=== PATIENT | male | born 1945 | race Hispanic/Latino ===

== ENCOUNTER 2020-12-06 13:59 | Inpatient (IN) | payer OTHER, MEDICARE ==
[~2020-12-06] VITALS: Ht 162.6 cm; Wt 44.5 kg
[~2020-12-06 13:59] MED LIST: Aspirin PO; DILT120C89 PO
[2020-12-06] MEDS: ASPIRIN 81 MG EC TAB PO SCH (14:19)
[2020-12-06] MEDS ORDERED: FUROSEMIDE 20 MG TABLET PO SCH (14:19)
[2020-12-06] MEDS ORDERED: GLUCAGON 1MG KIT 1 MG ML IM PRN (14:30)
[2020-12-06] MEDS ORDERED: DEXTROSE 50%-WATER 50 ML DISP.SYRIN IV PRN (14:30)
[2020-12-06] MEDS ORDERED: 0.9%NACL 10ML VIAL IVP PRN (14:30)
[2020-12-06] MEDS ORDERED: POTASSIUM CHLORIDE 10% ELIXIR 20 MEQ/15 ML UDCUP PO PRN ×2 (14:30→14:45)
[2020-12-06] MEDS ORDERED: POTASSIUM CHLORIDE 20MEQ/100ML 100 ML IV PRN ×2 (14:30→14:45)
[2020-12-06] MEDS ORDERED: KCL 20 MEQ ERTAB PO PRN ×2 (14:30→14:45)
[2020-12-06] MEDS ORDERED: LIDOCAINE HCL-MPF 1% 2ML VIAL IJ PRN (14:30)
[2020-12-06] MEDS ORDERED: MORPHINE 2 MG SYG IV PRN (14:45)
[2020-12-06] MEDS ORDERED: ACETAMINOPHEN WITH CODEINE 1 TAB TAB PO PRN (14:45)
[2020-12-06] MEDS ORDERED: DIPHENHYDRAMINE HCL 25 MG CAPSULE PO PRN (14:45)
[2020-12-06] MEDS ORDERED: HYDRALAZINE 20MG/ML VIAL IV PRN (14:45)
[2020-12-06] MEDS ORDERED: NITROGLYCERIN 0.4 MG SL TAB SL PRN (14:45)
[2020-12-06] MEDS ORDERED: DiphenhydrAMINE HCL 50 MG/ML VIAL IV PRN (14:45)
[2020-12-06] MEDS ORDERED: MAGNESIUM 2GM PREMIX 50ML 50 ML IV PRN (14:45)
[2020-12-06] MEDS ORDERED: LACTULOSE 20 GM/30 ML UDCUP PO PRN (14:45)
[2020-12-06] MEDS ORDERED: MAG/ALUM/SIMETH 30 ML UDCUP PO PRN (14:45)
[2020-12-06] MEDS ORDERED: ZOLPIDEM TARTRATE 5 MG TAB PO PRN (14:45)
[2020-12-06] MEDS ORDERED: ONDANSETRON 4MG INJ IV PRN (14:45)
[2020-12-06] MEDS ORDERED: LIDOCAINE HCL-MPF 1% 2ML VIAL IV PRN (14:45)
[2020-12-06] MEDS ORDERED: GUAIFENESIN-DM 200/20 MG 10 ML PO PRN (14:45)
[2020-12-06] MEDS ORDERED: ACETAMINOPHEN 325 MG TAB PO PRN ×2 (14:45)
[2020-12-06 15:28] LABS: BASOPHILS % (AUTO) 0.7 % (0.0-5.0); LYMPHOCYTES % (AUTO) 22.4 % (21.0-51.0); MEAN CORPUSCULAR HEMOGLOBIN 33.4 pg (27.0-33.0); MEAN CORPUSCULAR HGB CONC 34.3 g/dL (32.0-36.0); MEAN CORPUSCULAR VOLUME 97.4 fL (79-99); MONOCYTES % (AUTO) 9.7 % (3.0-13.0); NEUTROPHILS % (AUTO) 53.9 % (40.0-77.0); PLATELET COUNT (AUTO) 152 K/uL (130-400); RED BLOOD CELL COUNT(AUTO) 5.03 MIL/uL (4.50-6.20); RED CELL DISTRIBUTION WIDTH 15.1 % (11.0-15.5); WHITE BLOOD COUNT (AUTO) 7.6 K/uL (4.8-10.8)
[2020-12-06 15:32] LABS: APPEARANCE,URINE Clear (CLEAR); BILIRUBIN,URINE Negative (NEGATIVE); COLOR,URINE Yellow (YELLOW); GLUCOSE, URINE (UA) Negative (NEGATIVE); KETONES,URINE Negative (NEGATIVE); LEUKOCYTE ESTERASE ,URINE Trace (NEGATIVE); NITRATE,URINE Negative (NEGATIVE); OCCULT BLOOD,URINE Negative (NEGATIVE); PROTEIN,URINE Negative (NEGATIVE)
[2020-12-06 15:36] LABS: CREATININE 1.1 mg/dL (0.5-1.5); POTASSIUM 3.9 mmol/L (3.5-5.1)
[2020-12-06 15:44] LABS: INR 1.21 (0.85-1.15)
[2020-12-06] MEDS ORDERED: FUROSEMIDE 20 MG TABLET ONE (15:44)
[2020-12-06] MEDS ORDERED: ASPIRIN 81 MG EC TAB ONE (15:45)
[2020-12-06] MEDS ORDERED: CARVEDILOL 3.125 MG TABLET PO ONE (15:45)
[2020-12-06 15:46] LABS: PARTIAL THROMBOPLASTIN TIME 27.6 SEC (26.3-35.5)
[2020-12-06 15:49] LABS: ALBUMIN 4.1 g/dL (3.5-5.0); BILIRUBIN,TOTAL 1.8 mg/dL (0.2-1.0); THYROID STIMULATING HORMONE 3.97 uIU/mL (0.36-3.74); TOTAL PROTEIN, SERUM 7.8 g/dL (6.0-8.3)
[2020-12-06 15:55] LABS: B-TYPE NATRIURETIC PEPTIDE 1320 pg/mL (0-100)
[2020-12-06] MEDS: DIGOXIN 125 MCG TABLET PO SCH (16:00)
[2020-12-06] MEDS ORDERED: DIGOXIN 125 MCG TABLET PO SCH (16:01)
[2020-12-06 16:06] LABS: CREATINE KINASE, TOTAL 127 U/L (21-232); MYOGLOBIN 27 ng/mL (10-92); TROPONIN I < 0.04 ng/mL (0.00-0.06)
[2020-12-06] MEDS ORDERED: IOHEXOL-350 50ML VIAL IV ONE (16:23)
[2020-12-06] MEDS ORDERED: INSULIN R PO SS1 SQ SCH (16:30)
[2020-12-06 16:41] LABS: BACTERIA,URINE Rare /HPF (None Seen); RBC,URINE 0-1 /HPF (0-1); SQUAMOUS EPITHELIAL CELL,UR Rare /HPF (0-2); WBC,URINE 0-1 /HPF (0-1)
[2020-12-06] MEDS ORDERED: SOLU-MEDROL 125MG VIAL IM SCH (18:45)
[2020-12-06 19:05] LABS: ABG BASE EXCESS -4.3 mmol/L (-2.0-3.0); ABG HCO3 18.9 mmol/L (21.0-28.0); ABG OXYGEN SATURATION 93.4 % (95.0-99.0); ABG PCO2 30 mmHg (35-48)
[2020-12-06] MEDS ORDERED: FUROSEMIDE 20MG VIAL IV SCH (20:00)
[2020-12-06] MEDS ORDERED: SOLU-MEDROL 125MG VIAL ONE (20:54)
[2020-12-06] MEDS ORDERED: FUROSEMIDE 20MG VIAL ONE (20:55)
[2020-12-06] MEDS ORDERED: FAMOTIDINE 20MG TAB ONE (20:55)
[2020-12-06] MEDS: FAMOTIDINE 20MG TAB PO SCH (21:00)
[2020-12-06] MEDS: FUROSEMIDE 40MG VIAL IVP SCH (21:00)
[2020-12-06] MEDS: HEPARIN 5,000 UNIT VIAL SQ SCH (21:00)
[2020-12-06] MEDS: CARVEDILOL 3.125 MG TABLET PO SCH (21:00)
[2020-12-06] MEDS: INSULIN HUMULIN R 100 UNIT/ML 3ML SQ SCH (21:00)
[2020-12-06 21:50] VITALS: BP 133/56
[2020-12-06] MEDS: IPRATROPIUM 0.5 MG/2.5 ML INH IH SCH (22:16)
[2020-12-07] VITALS (14 sets, daily range): BP systolic 94–124; BP diastolic 58–92
[2020-12-07] MEDS: SOLU-MEDROL 125MG VIAL IVP SCH ×4 (01:16→19:31)
[2020-12-07 04:52] LABS: BASOPHILS % (AUTO) 0.2 % (0.0-5.0); EOSINOPHILS % (AUTO) 0.2 % (0.0-8.0); HEMATOCRIT 48.3 % (42-54); LYMPHOCYTES % (AUTO) 13.9 % (21.0-51.0); MEAN CORPUSCULAR HEMOGLOBIN 32.6 pg (27.0-33.0); MONOCYTES % (AUTO) 1.5 % (3.0-13.0); NEUTROPHILS % (AUTO) 83.8 % (40.0-77.0); PLATELET COUNT (AUTO) 138 K/uL (130-400); RED BLOOD CELL COUNT(AUTO) 5.03 MIL/uL (4.50-6.20); RED CELL DISTRIBUTION WIDTH 14.5 % (11.0-15.5); WHITE BLOOD COUNT (AUTO) 4.6 K/uL (4.8-10.8)
[2020-12-07 05:11] LABS: ALBUMIN 3.5 g/dL (3.5-5.0); BILIRUBIN,TOTAL 2.2 mg/dL (0.2-1.0); MAGNESIUM 4.3 mg/dL (1.80-2.40); POTASSIUM 4.3 mmol/L (3.5-5.1); TOTAL PROTEIN, SERUM 6.7 g/dL (6.0-8.3)
[2020-12-07 05:19] LABS: B-TYPE NATRIURETIC PEPTIDE 1600 pg/mL (0-100)
[2020-12-07 05:26] LABS: INR 1.21 (0.85-1.15)
[2020-12-07 05:27] LABS: PARTIAL THROMBOPLASTIN TIME 28.7 SEC (26.3-35.5)
[2020-12-07] MEDS: IPRATROPIUM 0.5 MG/2.5 ML INH IH SCH ×3 (06:00→18:00)
[2020-12-07] MEDS: BUDESONIDE 0.5 MG/2 ML INH IH SCH ×2 (06:00→18:00)
[2020-12-07] MEDS: INSULIN HUMULIN R 100 UNIT/ML 3ML SQ SCH ×4 (06:22→20:48)
[2020-12-07] MEDS: ASPIRIN 81 MG EC TAB PO SCH (08:25)
[2020-12-07] MEDS: FAMOTIDINE 20MG TAB PO SCH ×2 (08:25→20:18)
[2020-12-07] MEDS: HEPARIN 5,000 UNIT VIAL SQ SCH ×2 (08:26→20:17)
[2020-12-07] MEDS: FUROSEMIDE 40MG VIAL IVP SCH ×2 (08:28→20:18)
[2020-12-07] MEDS: CARVEDILOL 3.125 MG TABLET PO SCH ×2 (08:28→20:23)
[2020-12-07 16:01] LABS: APPEARANCE BODY FLUID BLOODY (CLEAR); COLOR,BODY FLUID RED (LT YELLOW); SPECIMENTYPE,BODY FLUID THORACENTESIS; TOTAL VOLUME,BODY FLUID 750 mL
[2020-12-07 16:02] LABS: BODY FLUID RBC 11500 /cu. mm.
[2020-12-07 16:18] LABS: BODY FLUID WBC 55 /cu. mm.
[2020-12-07] MEDS: DIGOXIN 125 MCG TABLET PO SCH ×2 (17:28→18:30)
[2020-12-07 21:14] LABS: BF LYMPHOCYTE 78 %; BF MESOTHELIAL 3 %
[2020-12-08 00:08] VITALS: BP 92/59
[2020-12-08] MEDS: SOLU-MEDROL 125MG VIAL IVP SCH ×4 (01:21→17:57)
[2020-12-08 04:00] VITALS: BP 86/59
[2020-12-08 05:18] LABS: HEMATOCRIT 39.3 % (42-54); MEAN CORPUSCULAR HEMOGLOBIN 33.7 pg (27.0-33.0); MEAN CORPUSCULAR HGB CONC 35.4 g/dL (32.0-36.0); MEAN CORPUSCULAR VOLUME 95.2 fL (79-99); RED BLOOD CELL COUNT(AUTO) 4.13 MIL/uL (4.50-6.20); RED CELL DISTRIBUTION WIDTH 14.3 % (11.0-15.5); WHITE BLOOD COUNT (AUTO) 15.9 K/uL (4.8-10.8)
[2020-12-08 05:26] LABS: CREATININE 1.6 mg/dL (0.5-1.5); MAGNESIUM 1.9 mg/dL (1.80-2.40); POTASSIUM 3.4 mmol/L (3.5-5.1)
[2020-12-08] MEDS: BUDESONIDE 0.5 MG/2 ML INH IH SCH ×2 (06:00→15:57)
[2020-12-08] MEDS: IPRATROPIUM 0.5 MG/2.5 ML INH IH SCH ×4 (06:00→15:56)
[2020-12-08] MEDS: INSULIN HUMULIN R 100 UNIT/ML 3ML SQ SCH ×4 (07:20→21:43)
[2020-12-08] MEDS ORDERED: KCL 20 MEQ ERTAB PO SCH (10:15)
[2020-12-08] MEDS: ASPIRIN 81 MG EC TAB PO SCH (10:23)
[2020-12-08] MEDS: FAMOTIDINE 20MG TAB PO SCH ×2 (10:23→21:39)
[2020-12-08] MEDS: CARVEDILOL 3.125 MG TABLET PO SCH ×2 (10:43→21:39)
[2020-12-08] MEDS: HEPARIN 5,000 UNIT VIAL SQ SCH ×2 (10:48→21:43)
[2020-12-08 12:00] VITALS: BP 98/60
[2020-12-08 16:11] VITALS: BP 101/65
[2020-12-08 19:00] VITALS: BP 108/67
[2020-12-08] MEDS ORDERED: DEXTROSE 10%-WATER 1,000 ML IV ONE (22:10)
[2020-12-09] VITALS: BP 93/56
[2020-12-09] MEDS: SOLU-MEDROL 125MG VIAL IVP SCH ×4 (00:25→18:42)
[2020-12-09] MEDS: IPRATROPIUM 0.5 MG/2.5 ML INH IH SCH ×6 (00:35→23:45)
[2020-12-09 04:00] VITALS: BP 105/70
[2020-12-09 04:29] LABS: BASOPHILS % (AUTO) 0.1 % (0.0-5.0); EOSINOPHILS % (AUTO) 0.1 % (0.0-8.0); LYMPHOCYTES % (AUTO) 2.5 % (21.0-51.0); MEAN CORPUSCULAR HEMOGLOBIN 33.7 pg (27.0-33.0); MEAN CORPUSCULAR HGB CONC 34.9 g/dL (32.0-36.0); MEAN CORPUSCULAR VOLUME 96.7 fL (79-99); MONOCYTES % (AUTO) 4.2 % (3.0-13.0); NEUTROPHILS % (AUTO) 91.8 % (40.0-77.0); PLATELET COUNT (AUTO) 143 K/uL (130-400); RED BLOOD CELL COUNT(AUTO) 4.24 MIL/uL (4.50-6.20); RED CELL DISTRIBUTION WIDTH 14.6 % (11.0-15.5); WHITE BLOOD COUNT (AUTO) 18.9 K/uL (4.8-10.8)
[2020-12-09 04:42] LABS: BILIRUBIN,TOTAL 1.2 mg/dL (0.2-1.0); CREATININE 1.1 mg/dL (0.5-1.5); MAGNESIUM 2.1 mg/dL (1.80-2.40); POTASSIUM 3.7 mmol/L (3.5-5.1); TOTAL PROTEIN, SERUM 5.9 g/dL (6.0-8.3)
[2020-12-09] MEDS: BUDESONIDE 0.5 MG/2 ML INH IH SCH ×3 (06:27→19:34)
[2020-12-09] MEDS: INSULIN HUMULIN R 100 UNIT/ML 3ML SQ SCH ×4 (06:57→21:41)
[2020-12-09] MEDS: APIXABAN 5 MG TABLET PO SCH ×2 (11:03→21:36)
[2020-12-09] MEDS: FAMOTIDINE 20MG TAB PO SCH ×2 (11:03→21:36)
[2020-12-09] MEDS: CARVEDILOL 3.125 MG TABLET PO SCH ×2 (11:03→21:00)
[2020-12-09] MEDS: FUROSEMIDE 40 MG TABLET PO SCH (11:05)
[2020-12-09 12:00] VITALS: BP 119/70
[2020-12-09 16:05] VITALS: BP 115/75
[2020-12-09] MEDS: DIGOXIN 125 MCG TABLET PO SCH (18:25)
[2020-12-09 19:00] VITALS: BP 97/60
[2020-12-10] VITALS: BP 101/66
[2020-12-10] MEDS: SOLU-MEDROL 125MG VIAL IVP SCH ×2 (00:21→06:55)
[2020-12-10 04:00] VITALS: BP 121/83
[2020-12-10 04:11] LABS: HEMATOCRIT 42.2 % (42-54); MEAN CORPUSCULAR HEMOGLOBIN 33.4 pg (27.0-33.0); MEAN CORPUSCULAR HGB CONC 34.1 g/dL (32.0-36.0); MEAN CORPUSCULAR VOLUME 97.9 fL (79-99); RED BLOOD CELL COUNT(AUTO) 4.31 MIL/uL (4.50-6.20); RED CELL DISTRIBUTION WIDTH 14.6 % (11.0-15.5)
[2020-12-10 04:27] LABS: CREATININE 1.1 mg/dL (0.5-1.5); DIGOXIN 0.57 ng/mL (0.50-2.00); POTASSIUM 3.7 mmol/L (3.5-5.1)
[2020-12-10] MEDS: IPRATROPIUM 0.5 MG/2.5 ML INH IH SCH ×3 (07:05→19:04)
[2020-12-10] MEDS: BUDESONIDE 0.5 MG/2 ML INH IH SCH ×2 (07:05→18:55)
[2020-12-10] MEDS: INSULIN HUMULIN R 100 UNIT/ML 3ML SQ SCH ×4 (07:07→21:04)
[2020-12-10] MEDS: CARVEDILOL 3.125 MG TABLET PO SCH ×2 (08:46→20:57)
[2020-12-10] MEDS: APIXABAN 5 MG TABLET PO SCH ×2 (08:46→20:57)
[2020-12-10] MEDS: FAMOTIDINE 20MG TAB PO SCH ×2 (08:46→20:57)
[2020-12-10] MEDS: FUROSEMIDE 40 MG TABLET PO SCH ×2 (09:00→11:35)
[2020-12-10 09:39] VITALS: BP 105/84
[2020-12-10] MEDS ORDERED: APIX5TAB PO (10:15)
[2020-12-10] MEDS ORDERED: DIGO125T71 PO (10:15)
[2020-12-10] MEDS ORDERED: METO-408 PO (10:15)
[2020-12-10] MEDS ORDERED: FURO40TA5 PO (10:15)
[2020-12-10 12:21] VITALS: BP_SYST 104; BP_SYST 86; BP_DIAS 51; BP_DIAS 65
[2020-12-10 16:56] VITALS: BP 113/68
[2020-12-10] MEDS: DIGOXIN 125 MCG TABLET PO SCH (18:32)
[2020-12-10 19:00] VITALS: BP 116/75
[2020-12-11] VITALS: BP 111/65
[2020-12-11] MEDS: IPRATROPIUM 0.5 MG/2.5 ML INH IH SCH ×3 (00:18→11:51)
[2020-12-11 04:00] VITALS: BP 113/66
[2020-12-11] MEDS: INSULIN HUMULIN R 100 UNIT/ML 3ML SQ SCH (06:37)
[2020-12-11] MEDS: BUDESONIDE 0.5 MG/2 ML INH IH SCH (06:38)
[2020-12-11 08:00] VITALS: BP 114/67
[2020-12-11] MEDS: FUROSEMIDE 40 MG TABLET PO SCH (08:22)
[2020-12-11] MEDS: CARVEDILOL 3.125 MG TABLET PO SCH (08:22)
[2020-12-11] MEDS: APIXABAN 5 MG TABLET PO SCH (08:22)
[2020-12-11] MEDS: FAMOTIDINE 20MG TAB PO SCH (08:22)
[2020-12-11] MEDS ORDERED: PREDNISONE 20 MG TABLET PO SCH (09:00)
[2020-12-11 11:46] VITALS: BP 112/74
== END 2020-12-11 13:05 | disposition home or self-care (01) | DRG 291 ==
LOC: EDH 13:59 → EDHIP 14:44 → 4AH 20:43
PROVIDERS: ADMIT Internal Medicine; ATTEND Internal Medicine
PROC: 0W993ZZ Drainage of Right Pleural Cavity, Percutaneous Approach (ICD-10-PCS; principal; 2020-12-07)
DX: I50.23 Acute on chronic systolic (congestive) heart failure (principal); J96.01 Acute respiratory failure with hypoxia; J44.1 Chronic obstructive pulmonary disease with (acute) exacerbation; Z68.1 Body mass index [BMI] 19.9 or less, adult; E87.1 Hypo-osmolality and hyponatremia; R64 Cachexia; J91.8 Pleural effusion in other conditions classified elsewhere; I48.0 Paroxysmal atrial fibrillation; I25.10 Atherosclerotic heart disease of native coronary artery without angina pectoris; I08.1 Rheumatic disorders of both mitral and tricuspid valves; I25.5 Ischemic cardiomyopathy; Z20.822 Contact with and (suspected) exposure to COVID-19; R29.6 Repeated falls; Z91.19 Patient's noncompliance with other medical treatment and regimen; Z87.891 Personal history of nicotine dependence; Z79.01 Long term (current) use of anticoagulants; Z79.899 Other long term (current) drug therapy
CPT/HCPCS: 32555; 36415; 36600; 71045; 71270; 80048; 80053; 80162; 81001; 82550; 82803; 82945; 82948; 83615; 83735; 83874; 83880; 83986; 84145; 84157; 84436; 84443; 84484; 85025; 85027; 85610; 85730; 87040; 87071; 87077; 87088; 87116; 87186; 87205; 87206; 87426; 89051; 93005; 94640; 94664; 94760; C1729; G0378; J1644; J1815; J1940; J2930; J3480; J3490; Q9967; U0003

== ENCOUNTER → 2021-05-16 | Outpatient (CLI) | payer OTHER, MEDICARE ==
[~2021-05-16] MED LIST changes: +APIX5TAB PO; -Aspirin PO; +DIGO125T71 PO; -DILT120C89 PO; +FURO40TA5 PO; +METO-408 PO
== END | disposition home or self-care (01) ==
LOC: SHCH 14:06
PROVIDERS: ATTEND Internal Medicine Cardiovascular Disease
DX: I73.9 Peripheral vascular disease, unspecified (principal)
CPT/HCPCS: 93925

== ENCOUNTER 2023-02-04 19:53 | Inpatient (IN) | payer OTHER, MEDICARE ==
[~2023-02-04] VITALS: Ht 165.1 cm; Wt 58.1 kg
[2023-02-04] MEDS ORDERED: FUROSEMIDE 40MG VIAL IV ONE (20:00)
[2023-02-04 20:05] LABS: ABG BASE EXCESS -5.7 mmol/L (-2.0-3.0); ABG HCO3 16.4 mmol/L (21.0-28.0); ABG OXYGEN SATURATION 82.4 % (95.0-99.0); ABG PCO2 25 mmHg (35-48)
[2023-02-04 20:21] LABS: BASOPHILS % (AUTO) 0.5 % (0.0-5.0); EOSINOPHILS % (AUTO) 1.9 % (0.0-8.0); HEMATOCRIT 44.3 % (42-54); LYMPHOCYTES % (AUTO) 27.9 % (21.0-51.0); MEAN CORPUSCULAR HEMOGLOBIN 32.8 pg (27.0-33.0); MEAN CORPUSCULAR HGB CONC 34.5 g/dL (32.0-36.0); MEAN CORPUSCULAR VOLUME 95.1 fL (79-99); NEUTROPHILS % (AUTO) 58.2 % (40.0-77.0); PLATELET COUNT (AUTO) 125 K/uL (130-400); RED BLOOD CELL COUNT(AUTO) 4.66 MIL/uL (4.50-6.20); RED CELL DISTRIBUTION WIDTH 13.5 % (11.0-15.5); WHITE BLOOD COUNT (AUTO) 6.4 K/uL (4.8-10.8)
[2023-02-04] MEDS ORDERED: IPRATROPIUM/ALBUTEROL SULFATE 3 ML SOLUTION IH ONE (20:30)
[2023-02-04 20:31] LABS: POTASSIUM 4.2 mmol/L (3.5-5.1)
[2023-02-04 20:36] LABS: ALBUMIN 2.9 g/dL (3.5-5.0); TOTAL PROTEIN, SERUM 5.5 g/dL (6.0-8.3)
[2023-02-04 20:43] LABS: B-TYPE NATRIURETIC PEPTIDE 1320 pg/mL (0-100)
[2023-02-04 21:34] LABS: APPEARANCE,URINE CLEAR (CLEAR); BILIRUBIN,URINE NEGATIVE (NEGATIVE); COLOR,URINE YELLOW (YELLOW); GLUCOSE, URINE (UA) NEGATIVE (NEGATIVE); KETONES,URINE NEGATIVE (NEGATIVE); LEUKOCYTE ESTERASE ,URINE NEGATIVE Leu/uL (NEGATIVE); NITRATE,URINE NEGATIVE (NEGATIVE); OCCULT BLOOD,URINE NEGATIVE (NEGATIVE); PH,URINE 5.5 (5.0-8.0); PROTEIN,URINE NEGATIVE (NEGATIVE); UROBILINOGEN,URINE 3 mg/dL (0.2-1.0)
[2023-02-04 21:37] LABS: BACTERIA,URINE RARE /HPF (None Seen); MUCUS,URINE RARE LPF (None Seen)
[2023-02-04] MEDS ORDERED: IOHEXOL-350 75 ML VIAL IV ONE (22:19)
[2023-02-04] MEDS ORDERED: ACETAMINOPHEN 325 MG TAB PO PRN (22:30)
[2023-02-04] MEDS ORDERED: IPRATROPIUM/ALBUTEROL SULFATE 3 ML SOLUTION IH PRN (22:30)
[2023-02-04] MEDS ORDERED: HYDRALAZINE 20MG/ML VIAL IV PRN (22:30)
[2023-02-04] MEDS ORDERED: ONDANSETRON 4MG INJ IVP PRN (22:30)
[2023-02-04] MEDS ORDERED: LACTULOSE 20 GM/30 ML UDCUP PO PRN (22:30)
[2023-02-04] MEDS ORDERED: CLONIDINE HCL 0.1 MG TABLET PO PRN (22:30)
[2023-02-04] MEDS: IPRATROPIUM 0.5 MG/2.5 ML INH IH SCH (23:19)
[2023-02-04 23:41] LABS: ABG OXYGEN SATURATION 90.6 % (95.0-99.0); ABG PCO2 25 mmHg (35-48)
[2023-02-05] VITALS (15 sets, daily range): BP systolic 82–133; BP diastolic 47–99
[2023-02-05] MEDS: CEFTRIAXONE 2GM VIAL IVPB SCH (02:16)
[2023-02-05] MEDS: AZITHROMYCIN 500MG+NS 250ML IVPB SCH (03:06)
[2023-02-05 05:21] LABS: BASOPHILS % (AUTO) 0.5 % (0.0-5.0); EOSINOPHILS % (AUTO) 0.5 % (0.0-8.0); LYMPHOCYTES % (AUTO) 14.2 % (21.0-51.0); MEAN CORPUSCULAR HEMOGLOBIN 33.3 pg (27.0-33.0); MEAN CORPUSCULAR VOLUME 95.2 fL (79-99); MONOCYTES % (AUTO) 8.9 % (3.0-13.0); NEUTROPHILS % (AUTO) 75.6 % (40.0-77.0); PLATELET COUNT (AUTO) 131 K/uL (130-400); RED BLOOD CELL COUNT(AUTO) 5.25 MIL/uL (4.50-6.20); RED CELL DISTRIBUTION WIDTH 13.2 % (11.0-15.5); WHITE BLOOD COUNT (AUTO) 6.6 K/uL (4.8-10.8)
[2023-02-05 05:38] LABS: INR 1.28 (0.85-1.15); PROTHROMBIN TIME 13.8 SEC (9.6-11.6)
[2023-02-05 06:00] LABS: CREATININE 1.1 mg/dL (0.5-1.5); MAGNESIUM 1.9 mg/dL (1.80-2.40); PHOSPHORUS 4.5 mg/dL (2.5-4.9); POTASSIUM 4.1 mmol/L (3.5-5.1); THYROID STIMULATING HORMONE 2.77 uIU/mL (0.36-3.74)
[2023-02-05] MEDS: IPRATROPIUM 0.5 MG/2.5 ML INH IH SCH ×5 (06:56→23:11)
[2023-02-05] MEDS ORDERED: FUROSEMIDE 20MG VIAL IV SCH ×2 (08:00)
[2023-02-05] MEDS ORDERED: IPRATROPIUM/ALBUTEROL SULFATE 3 ML SOLUTION IH PRN (11:00)
[2023-02-05] MEDS: SOLU-MEDROL 40MG VIAL IVP SCH ×2 (11:38→18:47)
[2023-02-05] MEDS ORDERED: 0.9% NACL 500ML IV.SOLN 500 ML IV SCH (16:30)
[2023-02-05] MEDS: DIGOXIN 125 MCG TABLET PO SCH (17:08)
[2023-02-05 17:13] LABS: BODY FLUID RBC 84923 /cu. mm.; BODY FLUID WBC 573 /cu. mm.
[2023-02-05 17:19] LABS: APPEARANCE BODY FLUID BLOODY (CLEAR); COLOR,BODY FLUID RED (LT YELLOW); SPECIMENTYPE,BODY FLUID PLEURAL; TOTAL VOLUME,BODY FLUID 1371 mL
[2023-02-05] MEDS: BUDESONIDE 0.5 MG/2 ML INH IH SCH (18:52)
[2023-02-05] MEDS ORDERED: AMIODARONE 150MG VIAL 150 MG in DEXTROSE 5%-WATER 100 ML IV SCH (19:00)
[2023-02-05 19:19] LABS: BF LYMPHOCYTE 58 %; BF MONOCYTE 4 %; BF OTHER CELLS 3
[2023-02-05] MEDS ORDERED: AMIODARONE 900MG VIAL 360 MG in DEXTROSE 5%-WATER 200 ML IV SCH (20:00)
[2023-02-05] MEDS: AMIODARONE 900MG VIAL 540 MG in DEXTROSE 5%-WATER 300 ML IV SCH (20:29)
[2023-02-05] MEDS: APIXABAN 5 MG TABLET PO SCH (21:03)
[2023-02-06] VITALS (54 sets, daily range): BP systolic 81–141; BP diastolic 50–89
[2023-02-06] MEDS: AZITHROMYCIN 500MG+NS 250ML IVPB SCH (02:53)
[2023-02-06] MEDS: CEFTRIAXONE 2GM VIAL IVPB SCH (02:53)
[2023-02-06] MEDS: SOLU-MEDROL 40MG VIAL IVP SCH ×3 (02:59→20:31)
[2023-02-06] MEDS: AMIODARONE 900MG VIAL 540 MG in DEXTROSE 5%-WATER 300 ML IV SCH ×2 (03:03→20:15)
[2023-02-06] MEDS: IPRATROPIUM 0.5 MG/2.5 ML INH IH SCH ×8 (05:00→22:40)
[2023-02-06 05:55] LABS: BASOPHILS % (AUTO) 0.1 % (0.0-5.0); HEMATOCRIT 45.4 % (42-54); LYMPHOCYTES % (AUTO) 8.8 % (21.0-51.0); MEAN CORPUSCULAR HEMOGLOBIN 33.2 pg (27.0-33.0); MEAN CORPUSCULAR HGB CONC 34.6 g/dL (32.0-36.0); MONOCYTES % (AUTO) 3.1 % (3.0-13.0); NEUTROPHILS % (AUTO) 87.4 % (40.0-77.0); PLATELET COUNT (AUTO) 119 K/uL (130-400); RED BLOOD CELL COUNT(AUTO) 4.73 MIL/uL (4.50-6.20); RED CELL DISTRIBUTION WIDTH 13.2 % (11.0-15.5); WHITE BLOOD COUNT (AUTO) 6.8 K/uL (4.8-10.8)
[2023-02-06 06:27] LABS: ALBUMIN 2.6 g/dL (3.5-5.0); CREATININE 1.2 mg/dL (0.5-1.5); MAGNESIUM 1.7 mg/dL (1.80-2.40); POTASSIUM 4.2 mmol/L (3.5-5.1); TOTAL PROTEIN, SERUM 5.2 g/dL (6.0-8.3)
[2023-02-06] MEDS: BUDESONIDE 0.5 MG/2 ML INH IH SCH ×2 (06:40→20:28)
[2023-02-06] MEDS: FUROSEMIDE 20MG VIAL IV SCH ×2 (08:28→20:30)
[2023-02-06] MEDS: DIGOXIN 125 MCG TABLET PO SCH (08:28)
[2023-02-06] MEDS: APIXABAN 5 MG TABLET PO SCH (08:29)
[2023-02-06] MEDS: MONTELUKAST SODIUM 10 MG TAB PO SCH (08:29)
[2023-02-06] MEDS ORDERED: VANCOMYCIN 1G/250ML KIT 250 ML IV SCH (10:00)
[2023-02-06] MEDS ORDERED: VANCOMYCIN PROTOCOL PER PHARMACY IV SCH (10:00)
[2023-02-06] MEDS: CEFEPIME HCL 2 GM VIAL IVPB SCH ×2 (10:51→20:29)
[2023-02-06] MEDS ORDERED: POTASSIUM CHLORIDE 20MEQ/100ML 100 ML IV PRN ×3 (11:30→13:00)
[2023-02-06] MEDS ORDERED: POTASSIUM CHLORIDE 10% ELIXIR 20 MEQ/15 ML UDCUP PO PRN ×2 (11:30→13:00)
[2023-02-06] MEDS ORDERED: KCL 20 MEQ ERTAB PO PRN ×2 (11:30→13:00)
[2023-02-06] MEDS ORDERED: MAGNESIUM 2GM PREMIX 50ML 50 ML IV PRN ×2 (11:30→13:00)
[2023-02-06] MEDS ORDERED: MAGNESIUM 2GM PREMIX 50ML 50 ML IV ONE (12:37)
[2023-02-06] MEDS ORDERED: NOREPINEPHRIN 4MG/NS 250ML 250 ML IV ONE (15:47)
[2023-02-06 16:42] LABS: ABG BASE EXCESS -2.7 mmol/L (-2.0-3.0); ABG HCO3 18.4 mmol/L (21.0-28.0); ABG OXYGEN SATURATION 83.5 % (95.0-99.0); ABG PCO2 25 mmHg (35-48)
[2023-02-06] MEDS ORDERED: FENTANYL CITRATE PF 50 MCG/1 ML 2ML VIAL ONE (17:25)
[2023-02-06] MEDS ORDERED: PROPOFOL 1000 MG/100 ML 100 ML IV ONE (17:26)
[2023-02-06] MEDS ORDERED: NOREPINEPHRINE 16MG/NS 250ML PREMIX IV SCH (17:30)
[2023-02-06] MEDS ORDERED: FENTANYL 2500MCG+NS 250ML IV.SOLN IV SCH (17:30)
[2023-02-06] MEDS ORDERED: PROPOFOL 1000 MG/100 ML IV PRN (17:30)
[2023-02-06] MEDS ORDERED: FENTANYL 2500MCG+NS 250ML 250 ML IV SCH (18:00)
[2023-02-06] MEDS ORDERED: NOREPINEPHRINE 16MG/NS 250ML 250 ML IV SCH (18:00)
[2023-02-06 18:04] LABS: HEMATOCRIT 52.5 % (42-54); MEAN CORPUSCULAR HEMOGLOBIN 33.2 pg (27.0-33.0); MEAN CORPUSCULAR HGB CONC 34.1 g/dL (32.0-36.0); MEAN CORPUSCULAR VOLUME 97.4 fL (79-99); RED BLOOD CELL COUNT(AUTO) 5.39 MIL/uL (4.50-6.20); RED CELL DISTRIBUTION WIDTH 13.8 % (11.0-15.5); WHITE BLOOD COUNT (AUTO) 15.3 K/uL (4.8-10.8)
[2023-02-06 18:54] LABS: ALBUMIN 3.3 g/dL (3.5-5.0); CREATININE 1.4 mg/dL (0.5-1.5); MAGNESIUM 2.5 mg/dL (1.80-2.40); POTASSIUM 4.1 mmol/L (3.5-5.1); TOTAL PROTEIN, SERUM 6.6 g/dL (6.0-8.3)
[2023-02-06] MEDS: PROPOFOL 1000 MG/100 ML 100 ML IV SCH (20:11)
[2023-02-06] MEDS: PHENYLEPHRINE HCL IV PRN (20:27)
[2023-02-06] MEDS: NACL 0.9% IV PRN (20:27)
[2023-02-06] MEDS: ENOXAPARIN SODIUM 60 MG/0.6 ML SQ SCH (20:30)
[2023-02-06 20:34] LABS: ABG BASE EXCESS -5.6 mmol/L (-2.0-3.0); ABG HCO3 19.3 mmol/L (21.0-28.0); ABG OXYGEN SATURATION 93.2 % (95.0-99.0); ABG PCO2 36 mmHg (35-48)
[2023-02-06] MEDS ORDERED: IOHEXOL 350 MG/ML 100ML INFUS..BTL IV ONE (21:32)
[2023-02-07] VITALS (103 sets, daily range): BP systolic 25–160; BP diastolic 5–114
[2023-02-07 01:37] LABS: ABG BASE EXCESS -8.2 mmol/L (-2.0-3.0); ABG HCO3 15.4 mmol/L (21.0-28.0); ABG OXYGEN SATURATION 83.9 % (95.0-99.0); ABG PCO2 27 mmHg (35-48)
[2023-02-07] MEDS ORDERED: SOLU-MEDROL 40MG VIAL IVP ONE (02:00)
[2023-02-07] MEDS: AZITHROMYCIN 500MG+NS 250ML IVPB SCH (02:03)
[2023-02-07] MEDS: CEFEPIME HCL 2 GM VIAL IVPB SCH ×3 (02:03→18:15)
[2023-02-07] MEDS: PROPOFOL 1000 MG/100 ML 100 ML IV SCH (02:09)
[2023-02-07] MEDS: IPRATROPIUM 0.5 MG/2.5 ML INH IH SCH ×6 (02:09→23:51)
[2023-02-07] MEDS ORDERED: IPRATROPIUM/ALBUTEROL SULFATE 3 ML SOLUTION IH ONE (02:30)
[2023-02-07 03:12] LABS: ABG BASE EXCESS -7.1 mmol/L (-2.0-3.0); ABG HCO3 19.5 mmol/L (21.0-28.0); ABG OXYGEN SATURATION 71.5 % (95.0-99.0); ABG PCO2 43 mmHg (35-48)
[2023-02-07] MEDS ORDERED: SODIUM BICARB 50MEQ 50ML VIAL 50 ML ONE ×4 (03:24→08:24)
[2023-02-07] MEDS ORDERED: SODIUM BICARB 8.4% 50ML SYRINGE IVP SCH (03:30)
[2023-02-07] MEDS ORDERED: FUROSEMIDE 40MG VIAL IV STA (03:41)
[2023-02-07] MEDS: SOLU-MEDROL 40MG VIAL IVP SCH ×3 (03:42→18:15)
[2023-02-07] MEDS ORDERED: VASOPRESSIN 20 UNITS/ML 1ML VIAL ONE (03:46)
[2023-02-07 03:54] LABS: ABG BASE EXCESS -3.9 mmol/L (-2.0-3.0); ABG HCO3 20.2 mmol/L (21.0-28.0); ABG OXYGEN SATURATION 98.3 % (95.0-99.0); ABG PCO2 35 mmHg (35-48)
[2023-02-07 04:41] LABS: BASOPHILS % (AUTO) 0.1 % (0.0-5.0); HEMATOCRIT 51.5 % (42-54); MEAN CORPUSCULAR HEMOGLOBIN 33.5 pg (27.0-33.0); MEAN CORPUSCULAR HGB CONC 34.2 g/dL (32.0-36.0); MEAN CORPUSCULAR VOLUME 98.1 fL (79-99); MONOCYTES % (AUTO) 7.4 % (3.0-13.0); NEUTROPHILS % (AUTO) 87.8 % (40.0-77.0); PLATELET COUNT (AUTO) 202 K/uL (130-400); RED BLOOD CELL COUNT(AUTO) 5.25 MIL/uL (4.50-6.20); RED CELL DISTRIBUTION WIDTH 13.9 % (11.0-15.5); WHITE BLOOD COUNT (AUTO) 17.3 K/uL (4.8-10.8)
[2023-02-07 04:52] LABS: CREATININE 1.5 mg/dL (0.5-1.5); POTASSIUM 5.9 mmol/L (3.5-5.1)
[2023-02-07] MEDS ORDERED: VANCOMYCIN PROTOCOL PER PHARMACY IV SCH (05:35)
[2023-02-07] MEDS ORDERED: CALCIUM GLUC 1GM/10ML VIAL IV ONE (06:00)
[2023-02-07] MEDS ORDERED: INSULIN HUMULIN R 100 UNIT/ML 3ML IV ONE (06:00)
[2023-02-07] MEDS ORDERED: DEXTROSE 50%-WATER 50 ML DISP.SYRIN IV ONE (06:00)
[2023-02-07] MEDS ORDERED: VANCOMYCIN 1G/250ML KIT 250 ML IV ONE (06:00)
[2023-02-07] MEDS: BUDESONIDE 0.5 MG/2 ML INH IH SCH ×2 (06:56→23:50)
[2023-02-07] MEDS: FUROSEMIDE 20MG VIAL IV SCH ×2 (08:00→19:59)
[2023-02-07] MEDS: PHARMACY COMMUNICATION MISC SCH ×8 (08:00→16:00)
[2023-02-07 08:22] LABS: ABG BASE EXCESS -22.5 mmol/L (-2.0-3.0); ABG HCO3 10.4 mmol/L (21.0-28.0); ABG OXYGEN SATURATION 84.3 % (95.0-99.0); ABG PCO2 51 mmHg (35-48)
[2023-02-07] MEDS ORDERED: SODIUM BICARB 50MEQ 50ML VIAL IV SCH ×2 (08:30→09:00)
[2023-02-07] MEDS: EPINEPHRINE PF 1MG (1:1,000) 10 MG in 0.9% NACL 250ML 240 ML IV PRN ×2 (08:36→16:39)
[2023-02-07] MEDS: NOREPINEPHRINE BITARTRATE 32 MG in 0.9% NACL 250ML 250 ML IV PRN ×2 (08:37→16:39)
[2023-02-07] MEDS ORDERED: CACL 1GM SYG IVP SCH (09:00)
[2023-02-07] MEDS: LACTATED RINGERS 1000ML IV SCH ×2 (09:11→11:23)
[2023-02-07 09:37] LABS: ALBUMIN 2.1 g/dL (3.5-5.0); CREATININE 2.1 mg/dL (0.5-1.5); POTASSIUM 3.1 mmol/L (3.5-5.1); TOTAL PROTEIN, SERUM 4.4 g/dL (6.0-8.3)
[2023-02-07] MEDS: SODIUM BICARB 8.4% 50ML SYRING 150 MEQ in DEXTROSE 5%-WATER 850 ML IVP SCH ×2 (09:54→20:07)
[2023-02-07] MEDS: VASOPRESSIN 20 UNITS in 0.9%NACL 100ML 100 ML IV SCH ×2 (09:57→17:45)
[2023-02-07] MEDS: AMIODARONE 900MG VIAL 540 MG in DEXTROSE 5%-WATER 300 ML IV SCH ×2 (09:57→17:46)
[2023-02-07] MEDS: DIGOXIN 125 MCG TABLET PO SCH (10:14)
[2023-02-07] MEDS: MONTELUKAST SODIUM 10 MG TAB PO SCH (10:15)
[2023-02-07] MEDS: ENOXAPARIN SODIUM 60 MG/0.6 ML SQ SCH ×2 (10:15→20:07)
[2023-02-07 11:58] LABS: ABG BASE EXCESS -6.5 mmol/L (-2.0-3.0); ABG HCO3 19.5 mmol/L (21.0-28.0); ABG OXYGEN SATURATION 99.7 % (95.0-99.0); ABG PCO2 41 mmHg (35-48)
[2023-02-07] MEDS ORDERED: LACTATED RINGERS 1000ML IV SCH ×3 (12:00→18:00)
[2023-02-07] MEDS: PHENYLEPHRINE HCL IV PRN (17:46)
[2023-02-07] MEDS: NACL 0.9% IV PRN (17:46)
[2023-02-08] VITALS (18 sets, daily range): BP systolic 2–23; BP diastolic -8–21
[2023-02-08] MEDS: CEFEPIME HCL 2 GM VIAL IVPB SCH (01:23)
[2023-02-08] MEDS: AZITHROMYCIN 500MG+NS 250ML IVPB SCH (01:23)
[2023-02-08] MEDS ORDERED: EPINEPHRINE PF 1MG (1:1,000) 1 MG/ML AMP ONE (01:52)
[2023-02-08] MEDS ORDERED: VANCOMYCIN 500MG+NS 100ML 100 ML IV SCH (18:30)
== END 2023-02-08 03:50 | DRG 871 ==
LOC: EDH 19:53 → OBSVTOIN 22:08 → EDHIP 22:08 → 2DH 02-05 00:05 → 2CH 02-06 15:17
PROVIDERS: ADMIT Internal Medicine; ATTEND Internal Medicine
PROC: 5A09357 Assistance with Respiratory Ventilation, Less than 24 Consecutive Hours, Continuous Positive Airway Pressure (ICD-10-PCS; 2023-02-04)
PROC: 0W993ZZ Drainage of Right Pleural Cavity, Percutaneous Approach (ICD-10-PCS; principal; 2023-02-05)
PROC: 5A09357 Assistance with Respiratory Ventilation, Less than 24 Consecutive Hours, Continuous Positive Airway Pressure (ICD-10-PCS; 2023-02-05)
PROC: 5A1945Z Respiratory Ventilation, 24-96 Consecutive Hours (ICD-10-PCS; 2023-02-06)
PROC: 0BH17EZ Insertion of Endotracheal Airway into Trachea, Via Natural or Artificial Opening (ICD-10-PCS; 2023-02-06)
PROC: 5A09357 Assistance with Respiratory Ventilation, Less than 24 Consecutive Hours, Continuous Positive Airway Pressure (ICD-10-PCS; 2023-02-06)
PROC: 05HM33Z Insertion of Infusion Device into Right Internal Jugular Vein, Percutaneous Approach (ICD-10-PCS; 2023-02-06)
PROC: B543ZZA Ultrasonography of Right Jugular Veins, Guidance (ICD-10-PCS; 2023-02-06)
PROC: 03HB33Z Insertion of Infusion Device into Right Radial Artery, Percutaneous Approach (ICD-10-PCS; 2023-02-06)
DX: A41.9 Sepsis, unspecified organism (principal); I50.43 Acute on chronic combined systolic (congestive) and diastolic (congestive) heart failure; J18.9 Pneumonia, unspecified organism; J96.01 Acute respiratory failure with hypoxia; R65.21 Severe sepsis with septic shock; K72.00 Acute and subacute hepatic failure without coma; E87.1 Hypo-osmolality and hyponatremia; I42.9 Cardiomyopathy, unspecified; Z20.822 Contact with and (suspected) exposure to COVID-19; Z66 Do not resuscitate; I73.9 Peripheral vascular disease, unspecified; I11.0 Hypertensive heart disease with heart failure; F10.20 Alcohol dependence, uncomplicated; F17.210 Nicotine dependence, cigarettes, uncomplicated; I25.10 Atherosclerotic heart disease of native coronary artery without angina pectoris; I34.0 Nonrheumatic mitral (valve) insufficiency; I48.0 Paroxysmal atrial fibrillation; Z79.01 Long term (current) use of anticoagulants; Z79.899 Other long term (current) drug therapy
CPT/HCPCS: 31500; 36415; 36600; 36620; 71045; 71270; 80048; 80053; 81001; 82330; 82435; 82550; 82803; 82945; 82947; 82948; 83605; 83615; 83735; 83874; 83880; 83930; 83935; 83986; 84100; 84132; 84145; 84157; 84295; 84300; 84443; 84484; 85018; 85025; 85027; 85610; 86738; 87040; 87071; 87116; 87205; 87206; 87449; 87635; 87804; 89051; 93005; 93306; 93970; 94002; 94003; 94640; 94660; 94664; C1751; C9803; G0378; J0171; J0282; J0456; J0610; J0692; J0696; J1650; J1815; J1940; J2370; J2704; J2920; J3010; J3370; J3475; J3490; J7050; J7060; J7070; Q9967